=== PATIENT | male | born 1935 | race Caucasian/White ===

== ENCOUNTER → 2018-01-02 | Outpatient (CLI) | payer MEDICARE, BC ==
[~2018-01-02] MED LIST: COUMADIN 2 MG TA2 M1 PO; MYRBETRIQ25 MG PO; PROSCAR 5MG TABL5 MG PO; ZOCOR20 MG PO; ZPAK PO
[2018-01-02 11:19] LABS: ABSOLUTE BASOPHILS 0.1 thou/uL (0.0-0.2); ABSOLUTE EOSINOPHILS 0.1 thou/uL (0.0-0.7); ABSOLUTE LYMPHOCYTES 1.5 thou/uL (0.8-5.3); ABSOLUTE MONOCYTES 0.5 thou/uL (0.0-1.2); ABSOLUTE NEUTROPHILS 4.5 thou/uL (1.6-8.1); BASOPHILS 0.9 %; EOSINOPHILS 0.8 %; HEMATOCRIT 45.1 % (42.0-52.0); HEMOGLOBIN 15.3 gm/dL (14.0-18.0); LYMPHOCYTES 22.5 %; MCH 33.2 pg (26.0-34.0); MCV 97.8 fL (80.0-100.0); MONOCYTES 8.3 %; MPV 9.4 fl. (7.2-11.1); NUCLEATED RBCS 0 /100WBC; PLATELET COUNT* 165 thou/uL (150-400); POLYS 67.5 %; RBC 4.61 mil/uL (4.50-6.00); RDW-CV 12.5 % (10.5-14.5); WBC 6.6 thou/uL (4.0-11.0)
[2018-01-02 11:51] LABS: URINE BLOOD 3+ (Negative); URINE CLARITY SL CLOUDY; URINE COLOR BROWN; URINE GLUCOSE-RANDOM NEGATIVE (Negative); URINE KETONES TRACE (Negative); URINE LEUKOCYTES-REFLEX TRACE (Negative); URINE NITRITE-REFLEX NEGATIVE (Negative); URINE PROTEIN 2+ (Negative); URINE SPECIFIC GRAVITY >= 1.030 (1.005-1.030)
[2018-01-02 11:53] LABS: ICTOTEST (BILI CONFIRMATORY) Negative (Negative); URINE BILIRUBIN 2+ (Negative)
[2018-01-02 11:58] LABS: ALBUMIN 3.7 g/dL (3.4-5.0); ALKALINE PHOSPHATASE 56 U/L (46-116); ANION GAP 6 mmol/L (7-16); BUN 15 mg/dL (7-18); CALCIUM 9.2 mg/dL (8.5-10.1); CHLORIDE 103 mmol/L (98-107); CHOLESTEROL 166 mg/dL (<200); CO2 31 mmol/L (21-32); CREATININE 1.3 mg/dL (0.6-1.3); GLUCOSE 137 mg/dL (70-99); HDL CHOLESTEROL 64 mg/dL (>40); LDL CHOLESTEROL 79 mg/dL (<100); POTASSIUM 4.5 mmol/L (3.5-5.1); SERUM ASSESSMENT Clear; SGOT 25 U/L (15-37); SGPT 32 U/L (30-65); SODIUM 140 mmol/L (136-145); TC:HDL 2.6 Ratio (Not establshd); TOTAL BILIRUBIN 0.9 mg/dL (<0.1-1.0); TOTAL PROTEIN 7.1 g/dL (6.4-8.2); TRIGLYCERIDE 115 mg/dL (<150); VLDL 23 mg/dL (<40)
[2018-01-02 12:07] LABS: BACTERIA-REFLEX 1-9 Few /HPF (None Seen); CRYSTALS None Seen /LPF (None Seen); FINE GRANULAR CASTS 0-3 Few /LPF (None Seen); MUCUS 0-3 Light strn/LPF (None Seen); SQUAMOUS 0-3 Few /LPF (0-3); URINE RBC >20 Many /HPF (0-2); URINE WBC-REFLEX 0-5 Rare /HPF (0-5)
[2018-01-10 17:28] LABS: FREE PSA 0.09
== END ==
LOC: M.LAB 10:26
PROVIDERS: Internal Medicine
DX: I10 Essential (primary) hypertension (principal); E78.1 Pure hyperglyceridemia; N40.1 Benign prostatic hyperplasia with lower urinary tract symptoms; I48.91 Unspecified atrial fibrillation; Z79.01 Long term (current) use of anticoagulants

== ENCOUNTER 2018-03-07 14:12 | Emergency (ER) | payer MEDICARE, BC ==
[~2018-03-07] VITALS: Ht 182.9 cm; Wt 84.2 kg
[2018-03-07] MEDS ORDERED: PROSCAR 5MG TABL5 MG PO (14:25)
[2018-03-07] MEDS ORDERED: MYRBETRIQ25 MG PO (14:25)
[2018-03-07] MEDS ORDERED: COUMADIN 2 MG TA2 M1 PO (14:25)
[2018-03-07] MEDS ORDERED: ZOCOR20 MG PO (14:26)
[2018-03-07 14:41] LABS: HEMATOCRIT 41.7 % (42.0-52.0); HEMOGLOBIN 13.7 gm/dL (14.0-18.0); MCH 31.8 pg (26.0-34.0); MCHC 32.8 g/dL (28.0-37.0); MCV 96.7 fL (80.0-100.0); MPV 8.9 fl. (7.2-11.1); NUCLEATED RBCS 0 /100WBC; PLATELET COUNT* 184 thou/uL (150-400); RBC 4.31 mil/uL (4.50-6.00); RDW-CV 13.7 % (10.5-14.5); WBC 17.5 thou/uL (4.0-11.0)
[2018-03-07 14:49] LABS: ANION GAP 6 mmol/L (7-16); BUN 23 mg/dL (7-18); CALCIUM 8.6 mg/dL (8.5-10.1); CHLORIDE 99 mmol/L (98-107); CO2 31 mmol/L (21-32); CREATININE 1.3 mg/dL (0.6-1.3); GLUCOSE 220 mg/dL (70-99); POTASSIUM 4.1 mmol/L (3.5-5.1); SODIUM 136 mmol/L (136-145)
[2018-03-07 14:50] LABS: PROTIME 35.8 Seconds (9.20-11.50)
[2018-03-07 14:52] LABS: INR 3.8
[2018-03-07 15:04] LABS: ALBUMIN 2.8 g/dL (3.4-5.0); ALKALINE PHOSPHATASE 85 U/L (46-116); NT-PRO BRAIN NAT PEPTIDE 2860 pg/mL (<300); SGOT 25 U/L (15-37); SGPT 76 U/L (30-65); TOTAL BILIRUBIN 0.7 mg/dL (<0.1-1.0); TOTAL PROTEIN 6.9 g/dL (6.4-8.2); TROPONIN-I LEVEL <0.06 ng/mL (<0.06)
[2018-03-07 15:55] LABS: ABSOLUTE LYMPHOCYTES 1.1 thou/uL (0.8-5.3); ABSOLUTE MONOCYTES 0.5 thou/uL (0.0-1.2); ABSOLUTE NEUTROPHILS 15.9 thou/uL (1.6-8.1); PLATELET ESTIMATE ADEQUATE
[2018-03-07] MEDS ORDERED: ZPAK PO (16:43)
[2018-03-07 17:06] VITALS: BP 94/57
--- NOTE | 2018-03-07 18:00 | EKG ---
[place] [address] ELECTROCARDIOGRAM REPORT Name: SOPHIE MURPHY [facility] [id number] Admission: 03/07/18 Attend Phys: Discharge: 03/07/18 Date of : 31 Report #: [id number] THIS REPORT FOR: //name// [facility] ED Test Date: 2018-03-07 Test Time: 14:20:09 Pat Name: SOPHIE MURPHY Department: Room: Gender: M Marketing Clerk: [place] : 1935 Requested By: Luis Fernando Townsend Order Number: [id number] MD: Rigo Lopes Measurements Intervals [place] Rate: 82 P: DE: QRS: 97 QRSD: 151 T: -79 QT: 411 QTc: 480 Interpretive Statements Afib/flut and V-paced complexes Borderline repol abnormality, diffuse leads No previous ECG available for comparison Electronically Signed On 03-07-2018 18:00:32 CDT by Rigo Lopes [email or web address] <ELECTRONICALLY SIGNED> By: Rigo Lopes MD, [facility] 03/07/18 1800 1420 1420 Rigo Lopes MD, FACC /EPI
== END 2018-03-07 17:08 | disposition home or self-care (01) ==
LOC: M.ERS 14:12
PROVIDERS: Emergency Medicine Emergency Medical Services
DX: J18.9 Pneumonia, unspecified organism (principal); J44.9 Chronic obstructive pulmonary disease, unspecified; F03.90 Unspecified dementia, unspecified severity, without behavioral disturbance, psychotic disturbance, mood disturbance, and anxiety; Z98.890 Other specified postprocedural states; Z88.8 Allergy status to other drugs, medicaments and biological substances